=== PATIENT | male | born 1960 ===

== ENCOUNTER 2016-11-10 08:58 | Day surgery (SDC) | payer MEDICAID ==
[2016-04-29 07:58] VITALS: BMI 28.3
[2016-11-10] MEDS ORDERED: Propofol 10 mg/ml Inj (20 ML) ONE (11:30)
[2016-11-10] MEDS ORDERED: Simethicone 40 mg/0.6 ml Liquid (30 ml) ONE (11:36)
[2016-11-10 12:47] VITALS: TEMP 96.8
[2016-11-10 12:48] VITALS: O2SAT 100
[2016-11-10 12:49] VITALS: RESP 12
[2016-11-10 13:18] VITALS: BP 109/74; PULSE 63
== END 2016-11-10 13:05 | disposition home or self-care (01) ==
LOC: C.ENDO 08:58
PROVIDERS: ATTEND Internal Medicine Gastroenterology
DX: Z12.11 Encounter for screening for malignant neoplasm of colon (principal); K57.30 Diverticulosis of large intestine without perforation or abscess without bleeding; K64.8 Other hemorrhoids
CPT/HCPCS: 45378; J2704